=== PATIENT | female | born 1985 | race African-American/Black ===

== ENCOUNTER 2023-12-01 07:25 | Outpatient (CLI) | payer BC, MEDICAID, SELFPAY ==
--- NOTE | 2023-12-01 | MR_ITS ---
FINAL REPORT CLINICAL HISTORY: .low back pain COMPARISON: None FINDINGS: Multiplanar MR imaging of the lumbar spine was performed without contrast. On the sagittal T2-weighted images, disc degeneration is seen at the L5-S1 level. Mild endplate degenerative changes present at the L5-S1 level. The vertebral alignment is normal. There is no evidence of fracture. Several vertebral body hemangiomas are present. The conus has an unremarkable appearance. No significant canal stenosis is identified. L1-2: No significant central canal stenosis or neuroforaminal narrowing. L2-3: No significant central canal stenosis or neuroforaminal narrowing. L3-4: No significant central canal stenosis or neuroforaminal narrowing. L4-5: No significant central canal stenosis or neuroforaminal narrowing. L5-S1: An annular bulge is present with facet arthropathy and osteophytes. There is moderate bilateral neural foraminal narrowing. IMPRESSION: Degenerative change as described at the L5-S1 level. Reviewed, Interpreted and Dictated by Sedrick Alejandro III, MD Transcribed by Brittaney Skinner Authenticated and [facility]
== END 2023-12-01 23:59 ==
PROVIDERS: PCP Nurse Practitioner Family; Visit Provider Nurse Practitioner Family
DX: M54.50 Low back pain, unspecified (principal)
CPT/HCPCS: 72148; 76376

== ENCOUNTER 2024-11-14 13:41 | Outpatient (CLI) | payer BC, SELFPAY ==
--- NOTE | 2024-11-14 13:47 | XR_ITS ---
FINAL REPORT CLINICAL HISTORY: Lt Hip pain COMPARISON: None FINDINGS: LEFT HIP: Two views of the left hip and an AP view of the pelvis demonstrate no acute fracture or dislocation. There are mild hypertrophic changes noted of the acetabular margins. The femoral head has a normal smooth contour. The visualized bony structures are well aligned. No soft tissue abnormality is seen. IMPRESSION: Degenerative changes without acute bony abnormality. Reviewed, Interpreted and Dictated by Raymond Cobb MD Transcribed by Meseret Hagan Authenticated and [facility]
== END 2024-11-14 23:59 | disposition home or self-care (01) ==
PROVIDERS: PCP Nurse Practitioner Family; Visit Provider Physician Assistant
DX: M25.552 Pain in left hip (principal)
CPT/HCPCS: 73502